=== PATIENT | female | born 1990 | race African-American/Black ===

== ENCOUNTER 2018-05-07 10:51 | Day surgery (SDC) | payer OTHER ==
[2018-05-07 11:24] VITALS: BMI 29.9
--- NOTE | 2018-05-07 14:41 | PRG ---
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 HISTORY OF PRESENT ILLNESS: The patient is a 28-year-old, G2, P1 female with an intrauterine at 27 weeks, who is presenting today with a 1-week history of lower pelvic pain that she reports has worsened in the last day or so. The patient reports the pain is sharp, lasts sometimes about a minute or so. She reports it is worse with activity and movement such as getting out of bed, rolling in bed, rolling over in bed, getting out of the car. She reports she has been resting at home and denies any strenuous activity. The patient denies any recent illness or fever, though she does say she has been having a cough for the last few days and feels like she is maybe coming down with something. She denies vaginal bleeding, but does report some discharge. The patient denies urinary urgency. She denies chest pain. Does have some baseline shortness of breath that she attributes to the and some nausea. Denies diarrhea or constipation. Denies any new rashes, hip problems, or any problems. PAST MEDICAL HISTORY: The patient reports that she has been diagnosed with chronic hypertension many years ago, but has never been on medication. Anemia. PAST SURGICAL HISTORY: Negative. ALLERGIES: PENICILLIN. MEDICATIONS: vitamins. SOCIAL HISTORY: Reports that she smokes a cigarette a day. Denies drug or alcohol use. OB HISTORY: She reports that her last baby delivered a month early. 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 REVIEW OF SYSTEMS: Per HPI. PHYSICAL EXAMINATION: VITAL SIGNS: Blood pressure is 123/71, heart rate of 94, saturating 100% on room air, respiratory rate of 18. GENERAL: She appears to be in no acute distress. She is alert, oriented, cooperative, and pleasant to interact with. HEENT: Head is normocephalic and atraumatic. LUNGS: Clear to auscultation bilaterally. HEART: Has a regular rate and rhythm. ABDOMEN: Soft and gravid. She does have some discomfort with lateral deviation of the uterus, but does not have any distinct pinpoint tenderness. EXTREMITIES: Nontender, nonedematous. GENITOURINARY: Vulva is without masses, lesions, or erythema. She does have a discharge noticeable at the perineum and at the introitus. On speculum exam, the discharge is greenish and pretty copious, but smooth in consistency visibly. The cervix is visibly closed. GC, chlamydia and VPIII were collected. On bimanual exam, cervix is very posterior and closed. The patient does have some tenderness to palpation of her posterior and lateral vaginal wall and musculature. heart tracing; fetus is noted to have a baseline in the 140s with moderate long-term variability, appropriate for 27 weeker. Tocometer is not showing any contraction pattern. She has, maybe some irritability, but the patient does not seem to be feeling these. VPIII is positive for yeast, negative for Trichomonas or bacterial vaginosis. GC and chlamydia are pending. ASSESSMENT AND PLAN: The patient is a 28-year-old G2, P1 female with an intrauterine at 27 weeks, who is presenting for a week history of pelvic pain with recent worsening. By history and exam, is consistent with musculoskeletal pain, ligament pains in . She has a yeast infection as seen by VPIII. GC and chlamydia are pending. Given her history, she is at risk for repeat infection. These results will be forwarded to Dr. Armendariz, her primary OB. We will also be keeping track to notify the patient when those results do come available. The patient is being discharged to home with instructions to use [id number] anti-yeast preparation. Fetus has a category 1 tracing and reassuring for gestational age. Job ID: [id number]
[2018-05-12 23:40] LABS: Chlamydia by PCR DETECTED (NotDetected); GC by PCR Not Detected (NotDetected)
--- NOTE | 2018-05-13 08:32 | PDOC.EVN ---
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 POS chlamydia noted I called and talked with the patient. Called her at [phone] She has not been treated yet. I explained this to her. I wioll call ZMAX 1 gram po x1 to [facility] [place]. Call done right now.
== END 2018-05-07 13:55 | disposition home or self-care (01) ==
LOC: L&D/OP 10:51
PROVIDERS: ATTEND Family Medicine
DX: O99.89 Other specified diseases and conditions complicating pregnancy, childbirth and the puerperium (principal); R10.2 Pelvic and perineal pain; O10.912 Unspecified pre-existing hypertension complicating pregnancy, second trimester; O99.332 Smoking (tobacco) complicating pregnancy, second trimester; F17.210 Nicotine dependence, cigarettes, uncomplicated; O98.812 Other maternal infectious and parasitic diseases complicating pregnancy, second trimester; B37.9 Candidiasis, unspecified; Z3A.27 27 weeks gestation of pregnancy; Z88.0 Allergy status to penicillin; Z79.899 Other long term (current) drug therapy
CPT/HCPCS: 87480; 87491; 87510; 87591; 87660; 99284

== ENCOUNTER 2018-07-25 17:18 | Inpatient (IN) | payer OTHER ==
[2018-07-25 17:54] VITALS: BMI 31.8
[2018-07-25 17:54] LABS: Amnisure Test RUPTURE DETECTED (No Rupture)
[2018-07-25 17:55] LABS: Amnisure Internal Control QC ACCEPTABLE (ACCEPTABLE)
[2018-07-25 18:43] LABS: Hemoglobin 9.2 g/dL (12.0-16.0); Mean Corpuscular HGB CONC 34.1 g/dL (32.0-36.0); Mean Corpuscular Hemoglobin 26.4 pg (27.0-31.0); Mean Corpuscular Volume 77.6 fL (78.0-98.0); Mean Platelet Volume 7.1 fL (7.4-10.4); Platelet Count 247 thou/uL (130-400); Red Blood Cell (RBC) Count 3.49 mill/uL (4.20-5.40); White Blood Cell (WBC) Count 15.2 thou/uL (4.8-10.8)
[2018-07-25] MEDS ORDERED: Fentanyl 4 mcg/Bup 0.1% Cadd 100 ML ONE (19:06)
[2018-07-25 19:24] LABS: Syphilis Antibody Nonreactive (Nonreactive); Syphilis Antibody Index 0.03 S/CO (<1.00 Non-Reactive)
[2018-07-25 19:25] LABS: HBSAg Index 0.26 S/CO (0-0.99); Hep B Surf Ag Non-Reactive S/CO (NonReactive)
[2018-07-25] MEDS ORDERED: Bupivacaine 0.5% 10 ML VIAL ONE (19:30)
[2018-07-25] MEDS ORDERED: Fentanyl 100 MCG/2 ML VIAL ONE (19:30)
[2018-07-25 19:34] LABS: Amphetamine Not Detected (NotDetected); Barbiturates Screen Not Detected (NotDetected); Benzodiazepine Screen Not Detected (NotDetected); Cocaine Metabolite Screen Detected (NotDetected); Medtox Control Line Valid? VALID (VALID); Medtox Reader # READER 4; Methadone Not Detected (NotDetected); Methamphetamine Not Detected (NotDetected); Opiate Screen Not Detected (NotDetected); Oxycodone Screen Not Detected (NotDetected); Phencyclidine (PCP) Not Detected (NotDetected); THC/Cannabinoid Screen Not Detected (NotDetected); Tricyclic Screen Not Detected (NotDetected)
[2018-07-25] MEDS ORDERED: Promethazine HCl 25 MG/ML VIAL IM PRN ×2 (19:55→20:30)
[2018-07-25] MEDS ORDERED: Naloxone HCl 0.4 mg/ml Vial IVP PRN ×2 (19:55)
[2018-07-25] MEDS ORDERED: diphenhydrAMINE 50 MG/ML VIAL IVP PRN (19:55)
[2018-07-25] MEDS ORDERED: ePHEDrine/0.9% NaCl/PF SYRINGE 50 mg/10 ml SLOW IVP PRN (19:55)
[2018-07-25] MEDS ORDERED: Acetaminophen 325 MG TAB PO PRN (19:55)
[2018-07-25] MEDS ORDERED: Ondansetron PF 4 MG/2 ML Vial IVP PRN ×2 (19:55→20:30)
[2018-07-25] MEDS ORDERED: Lactated Ringer's 500 ML IV PRN (19:55)
[2018-07-25] MEDS ORDERED: Communication Order-Pharmacy FS SCH (20:00)
[2018-07-25] MEDS ORDERED: Fentanyl 4 mcg/Bupivacaine 0.1% Cassette 100 ML EPIDURAL SCH (20:00)
[2018-07-25] MEDS ORDERED: Fentanyl 100 MCG/2 ML VIAL I-THECAL SCH (20:15)
[2018-07-25] MEDS ORDERED: Lactated Ringer's 1,000 ML IV SCH ×2 (20:30)
[2018-07-25] MEDS ORDERED: Ibuprofen 800 MG TAB PO PRN (20:45)
[2018-07-25] MEDS ORDERED: Methylergonovine 0.2 MG/ML VIAL IM PRN (20:45)
[2018-07-25] MEDS ORDERED: NS w/ Oxytocin 10 units 500 ML IV SCH ×2 (20:45)
[2018-07-25] MEDS ORDERED: Misoprostol 200 MCG TAB RC PRN (20:45)
[2018-07-25] MEDS ORDERED: Carboprost 250 MCG/ML AMP IM PRN (20:45)
[2018-07-25] MEDS ORDERED: Lidocaine 1% (PF) 30 ML VIAL SC PRN (20:45)
[2018-07-25] MEDS ORDERED: Lidocaine 1% (PF) 30 ML VIAL ONE (21:04)
[2018-07-25] MEDS: NS / Oxytocin 40 units/1000ml 1,000 ML IV SCH ×2 (21:30→23:13)
[2018-07-25] MEDS ORDERED: Clindamycin/D5W 900 MG in Premix Bag 1 BAG IVPB SCH (23:59)
[2018-07-26] MEDS ORDERED: Benzocaine-Menthol 82.5 ML CAN TOP PRN (00:38)
[2018-07-26] MEDS ORDERED: NS / Oxytocin 40 units/1000ml 1,000 ML IV SCH (00:38)
[2018-07-26] MEDS ORDERED: diphenhydrAMINE 25 MG CAP PO PRN (00:38)
[2018-07-26] MEDS ORDERED: Ondansetron PF 4 MG/2 ML Vial IVP PRN (00:38)
[2018-07-26] MEDS ORDERED: Bisacodyl 10 MG SUPP PR PRN (00:38)
[2018-07-26] MEDS ORDERED: Milk Of Magnesia 30 ML UDCUP PO PRN (00:38)
[2018-07-26] MEDS: Ibuprofen 800 MG TAB PO SCH ×6 (03:27→21:45)
[2018-07-26 06:24] LABS: Hemoglobin 8.6 g/dL (12.0-16.0); Mean Corpuscular HGB CONC 33.1 g/dL (32.0-36.0); Mean Corpuscular Hemoglobin 25.8 pg (27.0-31.0); Mean Corpuscular Volume 77.9 fL (78.0-98.0); Mean Platelet Volume 7.5 fL (7.4-10.4); Platelet Count 224 thou/uL (130-400); RBC Distribution Width 13.9 % (11.5-14.5); Red Blood Cell (RBC) Count 3.35 mill/uL (4.20-5.40)
[2018-07-26] MEDS: Docusate Calcium (SURFAK) 240 MG CAP PO SCH ×2 (08:50→21:45)
[2018-07-26] MEDS: Ferrous Sulfate 325 MG TAB PO SCH ×2 (08:50→15:55)
[2018-07-26] MEDS: HYDROcodone/Acetaminophen 5/325 mg Tablet PO PRN (08:50)
[2018-07-26] MEDS: Prenatal Vitamin 1 TAB PO SCH (08:50)
[2018-07-27] MEDS: Ibuprofen 800 MG TAB PO SCH ×3 (06:37→21:41)
[2018-07-27] MEDS: Prenatal Vitamin 1 TAB PO SCH (09:07)
[2018-07-27] MEDS: Ferrous Sulfate 325 MG TAB PO SCH ×2 (09:07→17:39)
[2018-07-27] MEDS: Docusate Calcium (SURFAK) 240 MG CAP PO SCH ×2 (09:07→21:41)
[2018-07-27] MEDS: HYDROcodone/Acetaminophen 5/325 mg Tablet PO PRN (13:38)
[2018-07-28] MEDS: Ibuprofen 800 MG TAB PO SCH ×2 (05:52→14:41)
[2018-07-28 08:46] VITALS: BP 121/62; TEMP 98.3
[2018-07-28] MEDS: Ferrous Sulfate 325 MG TAB PO SCH (09:07)
[2018-07-28] MEDS: Docusate Calcium (SURFAK) 240 MG CAP PO SCH (09:07)
[2018-07-28] MEDS: Prenatal Vitamin 1 TAB PO SCH (09:07)
== END 2018-07-28 17:10 | disposition home or self-care (01) | DRG 807 ==
LOC: L&D/OP 17:18 → L&D 19:21 → 3SW 07-26 00:56
PROVIDERS: ADMIT Family Medicine; ATTEND Family Medicine
PROC: 10E0XZZ Delivery of Products of Conception, External Approach (ICD-10-PCS; principal; 2018-07-25)
PROC: 0KQM0ZZ Repair Perineum Muscle, Open Approach (ICD-10-PCS; 2018-07-25)
DX: O99.324 Drug use complicating childbirth (principal); Z37.0 Single live birth; O99.824 Streptococcus B carrier state complicating childbirth; Z3A.38 38 weeks gestation of pregnancy; O70.1 Second degree perineal laceration during delivery; O99.334 Smoking (tobacco) complicating childbirth; O64.0XX0 Obstructed labor due to incomplete rotation of fetal head, not applicable or unspecified; F17.210 Nicotine dependence, cigarettes, uncomplicated; F14.90 Cocaine use, unspecified, uncomplicated; F12.90 Cannabis use, unspecified, uncomplicated; Z88.0 Allergy status to penicillin
CPT/HCPCS: 36415; 51702; 80306; 84112; 85027; 86780; 86850; 86900; 86901; 87340; 88307; 99285; J1200; J2001; J2210; J2590; J3010; J3490